=== PATIENT | male | born 1985 | race Caucasian/White ===

== ENCOUNTER 2017-04-28 11:40 | Emergency (ER) | payer BC, OTHER ==
[2017-04-28 11:55] VITALS: BP 109/61
[2017-04-28] MEDS ORDERED: Aspirin Low Dose CHEW TAB* 81 MG PO ONE (12:22)
[2017-04-28] MEDS ORDERED: Aspirin Low Dose CHEW TAB* 81 MG ONE (12:24)
[2017-04-28] MEDS ORDERED: NS 0.9% 1000 ML* 1,000 ML BOLUS ONE (12:27)
--- NOTE | 2017-04-28 12:34 | UC ---
Dizzy HPI HPI Summary: Shortly after waking up this morning had sudden onset light-headedness, spots in his vision, feeling of weakness. 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 Pt ate something and still felt weak, is here for evaluation. Denies hx of problems with heart, no MIs in parents, grandparents, or siblings. New rx for lexapro 6 weeks ago, also takes douglass, protein powder, shakeology but these have been for a long time. Denies CP, shoulder pain, SOB, or sweating. - History Of Current Complaint Chief Complaint: UCDizziness Stated Complaint: DIZZY LOW BP Time Seen by Provider: 04/28/17 12:22 Hx Obtained From: Patient Onset/Duration: Sudden Onset Timing: Constant Severity Initially: Moderate Severity Currently: Mild Character: Lightheaded Aggravating Factor(s): Exertion Associated Signs And Symptoms: Positive: Change In Medication. Negative: Decreased Oral Intake, Change In Diet - Allergies/Home Medications Allergies/Adverse Reactions: Allergies Allergy/AdvReac Type Severity Reaction Status Date / Time No Known Allergies Allergy Verified 04/28/17 12:01 Home Medications: Home Medications Albuterol Sulfate [Proair Respiclick] 108 mcg IN 04/28/17 [History] Escitalopram Oxalate [Lexapro 10 mg] 10 mg PO 04/28/17 [History] Ibuprofen TAB* [Advil TAB*] 200 mg PO Q6H PRN 04/28/17 [History Confirmed ] PMH/Surg Hx/FS Hx/Imm Hx Respiratory History: Asthma - Surgical History Surgical History: None - Family History Known Family History: Negative: Cardiac Disease - Social History Lives: With Family Alcohol Use: Occasionally Substance Use Type: None Smoking Status (MU): Never Smoked Tobacco Review of Systems Constitutional: Negative Skin: Negative Eyes: Negative ENT: Negative Respiratory: Negative Cardiovascular: Negative Gastrointestinal: Negative Genitourinary: Negative Motor: Negative Neurovascular: Negative Musculoskeletal: Negative Neurological: Weakness Psychological: Negative All Other Systems Reviewed And Are Negative: Yes Physical Exam Triage Information Reviewed: Yes Appearance: Well-Appearing, No Pain Distress, Well-Nourished Vital Signs: Initial Vital Signs Temp 97.8 F 04/28/17 11:45 Pulse 52 04/28/17 11:45 Resp 16 04/28/17 11:45 BP 109/61 04/28/17 11:45 Pulse Ox 97 04/28/17 11:45 Vital Signs Reviewed: Yes Eye Exam: Normal, Other - PERRL Eyes: Positive: Conjunctiva Clear ENT Exam: Normal ENT: Positive: Normal ENT inspection, Hearing grossly normal, Pharynx normal, TMs normal Dental Exam: Normal Respiratory Exam: Normal Respiratory: Positive: Chest non-tender, Lungs clear, Normal breath sounds, No respiratory distress, No accessory muscle use Cardiovascular Exam: Normal Cardiovascular: Positive: RRR, No Murmur Musculoskeletal Exam: Normal Neurological Exam: Normal Neurological: Positive: Alert Psychological Exam: Normal Skin Exam: Normal, Other - no sweating Dizzy Course/Dx - Differential Dx/Diagnosis Provider Diagnoses: possible anterior STEMI - Physician Notifications Discussed Patient Care With: Vaibhav Mcqueen Time Discussed With Above Provider: 12:25 Discharge - Discharge Plan Condition: Stable Disposition: TRANS HIGHER LVL OF CARE FAC
== END 2017-04-28 12:38 | disposition short-term general hospital (02) ==
LOC: UCEAST 11:40
DX: R42 Dizziness and giddiness (principal); R53.1 Weakness; R03.1 Nonspecific low blood-pressure reading; J45.909 Unspecified asthma, uncomplicated
CPT/HCPCS: 93005; 99203; A9270-GY; G0463

== ENCOUNTER 2017-04-28 12:49 | Emergency (ER) | payer BC ==
[2017-04-28 13:21] LABS: Hematocrit 44 % (42-52); Hemoglobin 14.4 g/dl (14.0-18.0); Mean Corpuscular HGB Conc 33 g/dl (31-36); Mean Corpuscular Hemoglobin 29 pg (27-31); Mean Corpuscular Volume 87 fL (80-94); Mean Platelet Volume 10 um3 (7.4-10.4); Red Cell Distribution Width 14 % (10.5-15); White Blood Count 4.4 10^3/ul (3.5-10.8)
[2017-04-28 13:38] LABS: Albumin 4.3 g/dL (3.2-5.2); BUN/Creatinine Ratio 15.5 (8-20); Calcium 9.2 mg/dL (8.6-10.3); EGFR African American 99.8 (>60); EGFR Non-African American 77.6 (>60); Globulin 2.4 g/dL (2-4); Magnesium 2.1 mg/dL (1.9-2.7); Potassium 4.1 mmol/L (3.5-5.0); Total Bilirubin 0.7 mg/dL (0.2-1.0); Total Protein 6.7 g/dL (6.4-8.9)
[2017-04-28 13:40] LABS: Troponin I 0.01 ng/mL (<0.04)
[2017-04-28 13:57] LABS: TSH (Thyroid Stimulating Horm) 1.59 mcIU/mL (0.34-5.60)
[2017-04-28 15:33] VITALS: BP 137/58
--- NOTE | 2017-05-01 14:37 | ED ---
I, Brett,Aundrea, scribed for Vaibhav Mcqueen MD on 04/28/17 at 1258 . Dizziness - HPI Summary HPI Summary: This 31 y/o male presents to ED via ambulance from Urgent Care for abnormal EKG. Pt is reported to have had possible STEMI. EKG at Urgent Care was reviewed by Dr. Alex and EPR prior to arrival, and considered non STEMI. Pt's chief complaint in ED is dizziness since this morning. He also reports feeling general weakness during his routine exercise last week. Negative CP. Pt was given NTG as [employer]IST. Blood pressure en route was 122/74. PMHx includes asthma that is controlled by albuterol. FHx is negative for any known cardiac dz. - History Of Current Complaint Stated Complaint: POSSIBLE STEMI COMMING FROM CC Hx Obtained From: Patient Timing: Constant Aggravating Factor(s): Nothing Alleviating Factor(s): Nothing Associated Signs And Symptoms: Positive: Other: - Dizziness. Negative: Chest Pain - Allergies/Home Medications Allergies/Adverse Reactions: Allergies Allergy/AdvReac Type Severity Reaction Status Date / Time No Known Allergies Allergy Verified 04/28/17 12:01 Home Medications: Home Medications Albuterol Sulfate [Proair Respiclick] 1 puff INH Q6HR PRN 04/28/17 [History Confirmed 04/28/17] Escitalopram (NF) [Lexapro 10 mg (NF)] 10 mg PO DAILY 04/28/17 [History Confirmed 04/28/17] PMH/Surg Hx/FS Hx/Imm Hx Cardiovascular History: Denies: Hx Hypertension Respiratory History: Reports: Hx Asthma - uses albuterol - Family History Known Family History: Negative: Cardiac Disease - Social History Alcohol Use: Occasionally Hx Substance Use: No Substance Use Type: Reports: None Hx Tobacco Use: No Smoking Status (MU): Never Smoked Tobacco Review of Systems Negative: Fever Negative: Chest Pain Negative: Shortness Of Breath Neurological: Other - Positive for dizziness All Other Systems Reviewed And Are Negative: Yes Physical Exam Triage Information Reviewed: Yes Vital Signs On Initial Exam: Initial Vitals Temp Pulse Resp BP Pulse Ox 97.8 F 56 19 115/58 100 04/28/17 12:54 04/28/17 12:54 04/28/17 12:54 04/28/17 12:54 04/28/17 12:54 Vital Signs Reviewed: Yes Appearance: Positive: Well-Appearing, No Pain Distress Skin: Positive: Warm, Skin Color Reflects Adequate Perfusion, Dry Head/Face: Positive: Normal Head/Face Inspection Eyes: Positive: Normal ENT: Positive: Normal ENT inspection Neck: Positive: Supple, Nontender Respiratory/Lung Sounds: Positive: Clear to Auscultation, Breath Sounds Present Cardiovascular: Positive: RRR, Pulses are Symmetrical in both Upper and Lower Extremities Musculoskeletal: Positive: Normal Neurological: Positive: Normal Psychiatric: Positive: Affect/Mood Appropriate AVPU Assessment: Alert Diagnostics - Vital Signs Vital Signs Temp Pulse Resp BP Pulse Ox 04/28/17 16:00 16 04/28/17 15:30 16 137/58 04/28/17 15:00 15 121/99 04/28/17 14:30 16 127/56 04/28/17 14:00 17 124/70 04/28/17 13:00 18 126/67 04/28/17 12:58 97.9 F 55 18 126/67 100 04/28/17 12:56 16 04/28/17 12:54 97.8 F 56 19 115/58 100 - Laboratory Lab Results: Lab Results 04/28/17 04/28/17 04/28/17 Range/Units 12:28 12:28 12:28 WBC 4.4 (3.5-10.8) 10^3/ul RBC 5.00 (4.0-5.4) 10^6/ul Hgb 14.4 (14.0-18.0) g/dl Hct 44 (42-52) % MCV 87 (80-94) fL MCH 29 (27-31) pg MCHC 33 (31-36) g/dl RDW 14 (10.5-15) % Plt Count 207 (150-450) 10^3/ul MPV 10 (7.4-10.4) um3 Neut % (Auto) 46.5 (38-83) % Lymph % (Auto) 34.4 (25-47) % [place] % (Auto) 7.8 (1-9) % Eos % (Auto) 9.1 H (0-6) % Baso % (Auto) 2.2 H (0-2) % Absolute Neuts (auto) 2.0 (1.5-7.7) 10^3/ul Absolute Lymphs (auto) 1.5 (1.0-4.8) 10^3/ul Absolute Monos (auto) 0.3 (0-0.8) 10^3/ul Absolute Eos (auto) 0.4 (0-0.6) 10^3/ul Absolute Basos (auto) 0.1 (0-0.2) 10^3/ul Absolute Nucleated RBC 0 10^3/ul Nucleated RBC % 0.1 Sodium 134 (133-145) mmol/L Potassium 4.1 (3.5-5.0) mmol/L Chloride 97 L (101-111) mmol/L Carbon Dioxide 31 (22-32) mmol/L Anion Gap 6 (2-11) mmol/L BUN 17 (6-24) mg/dL Creatinine 1.10 (0.67-1.17) mg/dL Est GFR ( Amer) 99.8 (>60) Est GFR (Non-Af Amer) 77.6 (>60) BUN/Creatinine Ratio 15.5 (8-20) Glucose 94 (70-100) mg/dL Lactic Acid 1.6 (0.5-2.0) mmol/L Calcium 9.2 (8.6-10.3) mg/dL Magnesium 2.1 (1.9-2.7) mg/dL Total Bilirubin 0.70 (0.2-1.0) mg/dL AST 36 (13-39) U/L ALT 25 (7-52) U/L Alkaline Phosphatase 58 (34-104) U/L Troponin I 0.01 (<0.04) ng/mL Total Protein 6.7 (6.4-8.9) g/dL Albumin 4.3 (3.2-5.2) g/dL Globulin 2.4 (2-4) g/dL Albumin/Globulin Ratio 1.8 (1-3) TSH 1.59 (0.34-5.60) mcIU/mL 04/28/17 Range/Units 15:46 WBC (3.5-10.8) 10^3/ul RBC (4.0-5.4) 10^6/ul Hgb (14.0-18.0) g/dl Hct (42-52) % MCV (80-94) fL MCH (27-31) pg MCHC (31-36) g/dl RDW (10.5-15) % Plt Count (150-450) 10^3/ul MPV (7.4-10.4) um3 Neut % (Auto) (38-83) % Lymph % (Auto) (25-47) % [place] % (Auto) (1-9) % Eos % (Auto) (0-6) % Baso % (Auto) (0-2) % Absolute Neuts (auto) (1.5-7.7) 10^3/ul Absolute Lymphs (auto) (1.0-4.8) 10^3/ul Absolute Monos (auto) (0-0.8) 10^3/ul Absolute Eos (auto) (0-0.6) 10^3/ul Absolute Basos (auto) (0-0.2) 10^3/ul Absolute Nucleated RBC 10^3/ul Nucleated RBC % Sodium (133-145) mmol/L Potassium (3.5-5.0) mmol/L Chloride (101-111) mmol/L Carbon Dioxide (22-32) mmol/L Anion Gap (2-11) mmol/L BUN (6-24) mg/dL Creatinine (0.67-1.17) mg/dL Est GFR ( Amer) (>60) Est GFR (Non-Af Amer) (>60) BUN/Creatinine Ratio (8-20) Glucose (70-100) mg/dL Lactic Acid (0.5-2.0) mmol/L Calcium (8.6-10.3) mg/dL Magnesium (1.9-2.7) mg/dL Total Bilirubin (0.2-1.0) mg/dL AST (13-39) U/L ALT (7-52) U/L Alkaline Phosphatase (34-104) U/L Troponin I 0.01 (<0.04) ng/mL Total Protein (6.4-8.9) g/dL Albumin (3.2-5.2) g/dL Globulin (2-4) g/dL Albumin/Globulin Ratio (1-3) TSH (0.34-5.60) mcIU/mL Result Diagrams: 04/28/17 12:28 04/28/17 12:28 Lab Statement: Any lab studies that have been ordered have been reviewed, and results considered in the medical decision making process. - EKG 1253 Cardiac Rate: NL - 66 bpm EKG Rhythm: Sinus Rhythm ST Segment: Normal EKG Interpretation: Early repolarization Re-Evaluation - Re-Evaluation First Eval Re-Evaluation Time: 16:44 Comment: MD in room to update pt on repeat trop, bloodwork, and EKG. Plan of care involving discharge and outpatient f/u is discussed with pt, and he is agreeable. Dizzy Course/Dx - Course Course Of Treatment: Consultation: Dr. Alex (Director News) at 1246 PM. Agrees to examine EKG from Urgent Care. Called back at 1257 PM -- agrees that EKG is not indicative of STEMI. STEMI will NOT be called. Assessment/Plan: Mr. Klein presented with vague complaints of nonvertiginous dizziness today and generally not feeling well. He also had some exercise related tiredness earlier in the week which did not stop him from finishing his exercise. His W/U was negative here including a delayed troponin. He may be coming down with a virus; he has no evidence for a tick-borne illness. - Diagnoses Provider Diagnoses: Weakness Discharge - Discharge Plan Condition: Stable Disposition: HOME Patient Education Materials: Dizziness (ED) Referrals: Lea Hirsch MD [Primary Care Provider] - 2 Days The documentation as recorded by the Brett fermin Soohyun accurately reflects the service I personally performed and the decisions made by me, Vaibhav Mcqueen MD.
== END 2017-04-28 16:57 | disposition home or self-care (01) ==
LOC: ED 12:49
DX: R53.1 Weakness (principal); R42 Dizziness and giddiness; J45.909 Unspecified asthma, uncomplicated
CPT/HCPCS: 36415; 80053; 83605; 83735; 84443; 84484; 85025; 93005; 99282